=== PATIENT | male | born 1975 | race Caucasian/White ===

== ENCOUNTER 2019-09-07 22:46 | Inpatient (IN) | payer BC ==
[~2019-09-07] VITALS: Ht 200.7 cm; Wt 169.6 kg
[2019-09-08 00:22] LABS: BASOPHILS ABSOLUTE AUTO 0.06 K/mm3 (0.00-0.23); BASOPHILS PERCENT AUTO 0 % (0-2); EOSINOPHILS ABSOLUTE AUTO 0.07 K/mm3 (0.00-0.68); EOSINOPHILS PERCENT AUTO 1 % (0-6); Hematocrit 38.6 % (37.0-53.0); Hemoglobin 12.5 g/dL (13.5-17.5); IMMATURE GRAN ABSOLUTE AUTO 0.06 K/mm3 (0.00-0.10); IMMATURE GRAN PERCENT AUTO 0 % (0-1); LYMPHOCYTES ABSOLUTE AUTO 1.47 K/mm3 (0.84-5.20); LYMPHOCYTES PERCENT AUTO 10 % (21-46); MONOCYTES ABSOLUTE AUTO 1.24 K/mm3 (0.16-1.47); MONOCYTES PERCENT AUTO 8 % (4-13); Mean Corpuscular HGB 27.9 pg (26.0-34.0); Mean Corpuscular HGB Conc 32.4 g/dL (31.5-36.5); Mean Corpuscular Volume 86 fL (80-100); Mean Platelet Volume 10.4 fL (9.1-12.4); NEUTROPHILS ABSOLUTE AUTO 12.01 K/mm3 (1.96-9.15); NEUTROPHILS PERCENT AUTO 81 % (41-73); Platelet Count 277 K/mm3 (150-400); RDW Coefficient Variation 13.6 % (11.7-14.2); RDW Standard Deviation 42.5 fL (35.1-46.3); Red Blood Cell Count 4.48 M/mm3 (4.30-5.90); White Blood Cell Count 14.91 K/mm3 (4.00-11.30)
[2019-09-08 00:38] LABS: Anion Gap 6 mmol/L (6-16); Blood Urea Nitrogen 10 mg/dL (8-24); Bun/Creatinine Ratio 10.4 (12.0-20.0); CO2, Blood 25 mmol/L (21-32); Calcium, Blood 8.2 mg/dL (8.5-10.1); Chloride, Blood 106 mmol/L (98-108); Creatinine, Blood 0.96 mg/dL (0.60-1.20); Glomerular Filtration Rate >60 (60-); Glucose, Blood 89 mg/dL (70-99); Potassium, Blood 3.5 mmol/L (3.5-5.5); Sodium, Blood 137 mmol/L (136-145)
--- NOTE | 2019-09-08 01:52 | NUR ---
PT ARRIVED TO ROOM 226 AT O110. PT A/O X4. ORIENTED TO ROOM. CALL LIGHT IN PLACE. REPORTS PAIN IS OKAY AT THIS TIME; PT GIVEN PAIN MEDICATION BEFORE TRANSFER TO ROOM 226. PERSONAL BELONGINGS WITH PT. REPORTS NO CONCERNS AT THIS TIME.
--- NOTE | 2019-09-08 04:14 | NUR ---
SHIFT SUMMARY PT WAS ADMITTED TO ROOM 226 AT APPROX 0100. PT IS A/O X4, STEADY ON FEET. HOWEVER DUE TO PAIN, PT WAS INSTRUCTED TO USE CALL LIGHT WHEN HE NEEDS TO USE RESTROOM. CALL LIGHT IN REACH. FLUIDS AND FENTANYL UPPER TRIMMER STARTED PER ORDER. OF THIS TIME PT HAS NOT BEEN NAUSEOUS. PT HAS BEEN NPO PER ORDER. MOUTH SWABS PROVIDED. ASSISTED WITH ADL'S PRN. WCTM.
--- NOTE | 2019-09-08 07:20 | NUR ---
pt awake laying in bed pt using cytogenetics laboratory manager for pain stated it comes and goes more bloat and gas cramps with some nausea pt had some questions re dx handout given along with disscusion awaiting dr wang pt to come later to day from [place]
--- NOTE | 2019-09-08 16:58 | NUR ---
pt stated pain is still a 10/05 stated he still has not voided offered some new swabs pt declined asked if his tongue is cracked or dry stated no stated he only voided once yesterday
--- NOTE | 2019-09-08 18:20 | NUR ---
dr wang by to see pt ok to try cl
[2019-09-09 05:31] LABS: BASOPHILS ABSOLUTE AUTO 0.05 K/mm3 (0.00-0.23); BASOPHILS PERCENT AUTO 1 % (0-2); EOSINOPHILS ABSOLUTE AUTO 0.23 K/mm3 (0.00-0.68); EOSINOPHILS PERCENT AUTO 3 % (0-6); Hematocrit 37.1 % (37.0-53.0); Hemoglobin 11.5 g/dL (13.5-17.5); IMMATURE GRAN ABSOLUTE AUTO 0.02 K/mm3 (0.00-0.10); IMMATURE GRAN PERCENT AUTO 0 % (0-1); LYMPHOCYTES ABSOLUTE AUTO 1.52 K/mm3 (0.84-5.20); LYMPHOCYTES PERCENT AUTO 19 % (21-46); MONOCYTES ABSOLUTE AUTO 0.55 K/mm3 (0.16-1.47); MONOCYTES PERCENT AUTO 7 % (4-13); Mean Corpuscular HGB 26.9 pg (26.0-34.0); Mean Corpuscular Volume 87 fL (80-100); Mean Platelet Volume 10.6 fL (9.1-12.4); NEUTROPHILS ABSOLUTE AUTO 5.74 K/mm3 (1.96-9.15); NEUTROPHILS PERCENT AUTO 71 % (41-73); Platelet Count 260 K/mm3 (150-400); RDW Coefficient Variation 13.2 % (11.7-14.2); Red Blood Cell Count 4.27 M/mm3 (4.30-5.90); White Blood Cell Count 8.11 K/mm3 (4.00-11.30)
[2019-09-09 05:57] LABS: Anion Gap 5 mmol/L (6-16); Blood Urea Nitrogen 10 mg/dL (8-24); Bun/Creatinine Ratio 10.9 (12.0-20.0); CO2, Blood 28 mmol/L (21-32); Calcium, Blood 8.1 mg/dL (8.5-10.1); Chloride, Blood 105 mmol/L (98-108); Creatinine, Blood 0.92 mg/dL (0.60-1.20); Glomerular Filtration Rate >60 (60-); Glucose, Blood 78 mg/dL (70-99); Potassium, Blood 3.3 mmol/L (3.5-5.5); Sodium, Blood 138 mmol/L (136-145)
--- NOTE | 2019-09-09 07:49 | NUR ---
SUMMARY PT ALERT.USING IS. DENIES NEED FOR TORADOL AT THIS TIME. PASSING FLATUS. NO C/O NAUSEA.
--- NOTE | 2019-09-09 20:14 | NUR ---
END OF SHIFT SUMMARY: PATIENT'S PAIN CONTROLLED THROUGHOUT THE SHIFT WITH SPARES SCHEDULER AND PRN TORADOL (SEE EMAR). ENCOURAGED PATIENT TO AMBULATE. PATIENT UP IN HALLWAY WITH HIS AND UP FOR A SHOWER. DENIED INCREASED PAIN WITH AMBULATION. K-PAD PROVIDED TO ASSIST WITH PAIN. PATIENT REPORTED INCREASED COMFORT. PATIENT TOLERATED PO CLEARS THROUGHOUT THE SHIFT. PATIENT DENIED INCREASED PAIN, NAUSEA OR CRAMPING AFTER EATING.
--- NOTE | 2019-09-10 07:29 | NUR ---
PT HAD NO ACUTE CHANGES T/O NIGHT; VSS. PAIN MGD W/CLARIFICATION OPERATOR+TORADOL W/REP RELIEF. PT HAD NO C/O N/V, REQ TO REMAIN ON CL PO UNTIL AFTER CT SCAN COMPLETED WEDNESDAY AM. PT REP +FLATUS, NO BM. PT INDEP IN ROOM, AMB IN HALLS X1, JULIOCESAR WELL. IVF AND ABX CONT PER ORDERS. PT USING CALL LIGHT FOR ASSISTANCE, REPORT GIVEN TO DAY RN.
--- NOTE | 2019-09-10 13:30 | NUR ---
BOWEL MOVEMENT: PATIENT ABLE TO HAVE A BOWEL MOVEMENT AT THIS TIME. IT WAS A MEDIUM, FORMED, HARD, BROWN STOOL. THERE WAS SOME RED TINT TO THE TOILET WATER. PATIENT REPORTED CHIDI BLOODY STREAKS ON THE TOILET PAPER. PATIENT REPORTED THAT HAVING THE BOWEL MOVEMENT WAS PAINFUL AND THAT HIS ABDOMEN CONTINUES TO HAVE INCREASED PAIN IN THE LLQ. PATIENT BACK IN BED. PATIENT UTILIZED POTATO CHIP MAKER BOLUS. ASSISTED PATIENT WITH K-PAD. ENCOURAGED PATIENT TO REST AND NOTIFY RN IF THE PAIN DOES NOT SUBSIDE.
--- NOTE | 2019-09-10 17:30 | NUR ---
DIET: PATIENT WAS TO BE ADVANCED TO FULL LIQUID DIET THIS MORNING. PATIENT REQUESTED THAT HE CONTINUE WITH CLEARS. THIS EVENING, PATIENT REPORTS THAT HE IS READY FOR A FULL LIQUID DIET. CONTINUES TO DENY PAIN AFTER EATING, NAUSEA, OR INCREASED ABDOMINAL CRAMPING. FULL LIQUID DIET ORDER RESUMED.
--- NOTE | 2019-09-10 18:51 | NUR ---
SHIFT SUMMARY: PATIENT UP IN ROOM MULTIPLE TIMES. PATIENT AMBULATED IN HALLWAY WITH HIS . PATIENT REPORTED IMPROVED COMFORT IN HIS ABDOMEN THIS MORNING. PATIENT CONTINUES TO HAVE PAIN IN LLQ OF THE ABDOMEN, ESPECIALLY WITH PALPATION. PATIENT HAD A BOWEL MOVEMENT IN THE AFTERNOON. PATIENT REPORTED INCREASED PAIN WHILE PASSING THE BOWEL MOVEMENT AND FOR THE REST OF THE AFTERNOON AND EVENING. PAIN CONTROLLED WITH JAVA SOFTWARE DEVELOPER AND IV PRNS (SEE EMAR). PATIENT TOLERATED CLEAR LIQUID DIET THROUGHOUT DAY. PATIENT REQUESTED TO ATTEMPT TO ADVANCE TO FULL LIQUIDS AGAIN (SEE NURSES NOTE) . PATIENT DENIED INCREASED CRAMPING OR NAUSEA WITH PO INTAKE.
--- NOTE | 2019-09-11 07:51 | NUR ---
PT VSS T/O NIGHT. PAIN MGD W/TORADOL AND LCSW W/REP RELIEF. PT HAD NO C/O N/V AFTER FL PO. CONTRAST STARTED THIS AM FOR PLAN FOR CT SCAN THIS AM. PT AMB INDEP, JULIOCESAR WELL. IVF AND ABX CONT PER ORDERS, REP GIVEN TO DAY RN.
--- NOTE | 2019-09-11 17:17 | NUR ---
SHIFT SUMMARY PT HAS DONE FAIRLY WELL TODAY. TOLERATING FULL LQ DIET BUT DOESN'T CARE FOR IT. ADVANCED TO REG DIET FOR DINNER. ABD SOFT. PASSING GAS.
--- NOTE | 2019-09-12 04:47 | NUR ---
SHIFT SUMMARY: PT HAS DONE WELL THIS SHIFT. A&O X4. VS WNL. PAIN BEING MANAGED WITH FENTANYL RF DESIGN ENGINEER WITH CONTINOUS RATE. PT REPORTS MILD PAIN TO UPPER ABD, HOWEVER STATES IT IS TOLERABLE. JULIOCESAR REG DIET. DENIES N/V. PT INDEPENDENT IN ROOM. VOIDING WELL. IVF AND ABX INFUSING PER EMAR. PLAN TO CONTINUE IV ABX AND POSSIBLE DISCHARGE ON WEDNESDAY.
--- NOTE | 2019-09-13 05:04 | NUR ---
SHIFT SUMMARY: NO SIGNIFICANT CHANGES THIS SHIFT. PT A&O X4. VS WNL. JULIOCESAR REG DIET AND DENIES N/V. PT GIVEN ORAL ABX PER EMAR. PAIN BEING MANAGED WITH 2 NORCO PER EMAR. MEDICATED ONCE THIS SHIFT. PT RESTING AT THIS TIME WITH CALL LIGHT IN REACH. PLAN FOR DISCHARGE TODAY.
[2019-09-13] MEDS ORDERED: HYDR1TAB94 PO (10:09)
[2019-09-13] MEDS ORDERED: METR500 PO (10:10)
[2019-09-13] MEDS ORDERED: LEVOFLOXACIN750 MG PO (10:10)
--- NOTE | 2019-09-13 10:50 | NUR ---
DISCHARGE PT DECLINES WC OUT. AMBULATES W/ SPOUSE. SCRIPTS GIVEN. STATES UNDERSTANDING OF COMPLETING ANTIBIOTIC COURSE.
== END 2019-09-13 11:00 | disposition home or self-care (01) | DRG 392 ==
LOC: ER 22:46 → SURS 09-08 00:18
PROVIDERS: Emergency Medicine; ADMIT Surgery
DX: K57.20 Diverticulitis of large intestine with perforation and abscess without bleeding (principal)
CPT/HCPCS: 36415; 71045; 74177; 80048; 85025; 96374; 96375; 99285-25; A9270; A9270-GY; J0295; J1170; J1885; J2405; J3010; J7050; J7120; Q9967